=== PATIENT | female | born 1960 | race Caucasian/White ===

== ENCOUNTER → 2017-01-04 | Outpatient (CLI) | payer BC | LOC: LAB 17:59 | DX: N30.01 Acute cystitis with hematuria (principal) ==

== ENCOUNTER → 2017-05-31 | Outpatient (CLI) | payer BC | LOC: MAMMO 14:19 | DX: Z12.31 Encounter for screening mammogram for malignant neoplasm of breast (principal) | CPT/HCPCS: G0202 ==

== ENCOUNTER → 2017-10-17 | Outpatient (CLI) | payer BC | LOC: RAD 12:53 | DX: R74.8 Abnormal levels of other serum enzymes (principal) ==

== ENCOUNTER → 2018-05-31 | Outpatient (CLI) | payer BC | LOC: MAMMO 15:02 | DX: Z12.31 Encounter for screening mammogram for malignant neoplasm of breast (principal) ==

== ENCOUNTER → 2019-07-03 | Outpatient (CLI) | payer BC | LOC: MAMMO 14:23 | DX: Z12.31 Encounter for screening mammogram for malignant neoplasm of breast (principal) ==

== ENCOUNTER → 2021-04-04 | Outpatient (CLI) | payer BC | LOC: LAB 10:44 | DX: N39.0 Urinary tract infection, site not specified (principal) ==

== ENCOUNTER → 2021-05-25 | Outpatient (CLI) | payer BC | LOC: MAMMO 12:52 | DX: Z12.31 Encounter for screening mammogram for malignant neoplasm of breast (principal) ==

== ENCOUNTER 2022-06-11 09:39 | Emergency (ER) | payer BC ==
[~2022-06-11] VITALS: Ht 172.7 cm; Wt 97.3 kg
[2022-06-11 10:59] LABS: BASO # 0.03 K/mm3 (0.02-0.10); EOS # 0.14 K/mm3 (0.04-0.40); EOS % 2.2 % (1.0-5.0); HEMATOCRIT 39.5 % (37.0-47.0); HEMOGLOBIN 13.4 g/dL (12.5-16.0); LYMPH# 2.82 K/mm3 (1.50-4.00); MEAN CELL VOLUME 93 fl (78-100); MEAN CORPUSCULAR HEMOGLOBIN 32 pg (27-31); MEAN CORPUSCULAR HGB CONC 34 g/dL (33-37); MEAN PLATELET VOLUME 10.1 fl (7.4-10.4); MONO # 0.43 K/mm3 (0.20-0.80); NEU # 2.82 K/mm3 (1.40-6.50); PLATELET COUNT 224 K/mm3 (130-400); RED BLOOD COUNT 4.23 M/mm3 (4.10-5.30); WHITE BLOOD COUNT 6.3 K/mm3 (4.8-10.8)
[2022-06-11 11:04] LABS: ALBUMIN 4.1 g/dL (3.4-4.8)
[2022-06-11 11:05] LABS: POTASSIUM 4.2 mmol/L (3.5-5.1); SODIUM 143 mmol/L (136-145)
[2022-06-11 11:06] LABS: CALCIUM 9.6 mg/dL (8.3-10.5)
[2022-06-11 11:07] LABS: GLUCOSE 104 mg/dL (65-105); TOTAL PROTEIN 6.9 g/dL (6.2-8.1)
[2022-06-11 11:08] LABS: CARBON DIOXIDE 23 mmol/L (23-31)
[2022-06-11 11:09] LABS: TOTAL BILIRUBIN 0.5 mg/dL (0.2-1.2)
[2022-06-11 11:11] LABS: PARTIAL THROMBOPLASTIN TIME 24.5 SECONDS (21.0-32.0); PROTHROMBIN TIME 9.6 SECONDS (9.0-12.0)
[2022-06-11 11:12] LABS: AST-SGOT 29 U/L (5-34)
[2022-06-11 11:13] LABS: ALT/SGPT 33 U/L (0-55)
[2022-06-11 11:24] LABS: TROPONIN-I < 0.030 ng/mL (<0.030)
[2022-06-11] MEDS ORDERED: SYNTHROID0.125 MG PO (11:25)
[2022-06-11 15:21] LABS: URINE APPEARANCE CLEAR; URINE BILIRUBIN NEGATIVE (NEGATIVE); URINE BLOOD NEGATIVE (NEGATIVE); URINE COLOR YELLOW; URINE GLUCOSE NEGATIVE (NEGATIVE); URINE KETONE 1+ (NEGATIVE); URINE LEUKOCYTE ESTERASE NEGATIVE (NEGATIVE); URINE NITRATE NEGATIVE (NEGATIVE); URINE PROTEIN(semi-quant) NEGATIVE (NEGATIVE); URINE UROBILINOGEN NORMAL (NORMAL); URINE WBC 0-1 /hpf (0-3)
[2022-06-11 16:02] VITALS: BP 111/71
== END 2022-06-11 16:00 | disposition home or self-care (01) ==
LOC: ED 09:39
PROVIDERS: Nurse Practitioner
DX: R42 Dizziness and giddiness (principal)
CPT/HCPCS: J7030

== ENCOUNTER → 2022-06-23 | Outpatient (CLI) | payer BC ==
[~2022-06-23] MED LIST: SYNTHROID0.125 MG PO
== END ==
LOC: MAMMO 08:30
DX: Z12.31 Encounter for screening mammogram for malignant neoplasm of breast (principal)

== ENCOUNTER → 2024-05-17 | Outpatient (CLI) | payer BC | LOC: MAMMO 09:48 | DX: Z12.31 Encounter for screening mammogram for malignant neoplasm of breast (principal) ==